=== PATIENT | female | born 1960 | race Caucasian/White ===

== ENCOUNTER 2017-07-05 02:10 | Emergency (ER) | payer OTHER ==
[~2017-07-05] VITALS: Ht 170.2 cm; Wt 160.0 kg
[~2017-07-05 02:10] MED LIST: ADVAI250I PO; ALBU8I INH; ALL5TAB5 PO; BUME1TAB PO; CITA20TA4 PO; METO25CR PO; MOBI15TA PO; PRAV40 PO; PRIL40CA PO; RISP2TAB2 PO; SERO300T PO; SYNT25TA PO; TIZA4 PO; TRAZ150T75 PO; TYLE500T PO; VENL150T14 PO
[2017-07-05 02:13] VITALS: BP 150/79; PULSE 76; RESP 20; TEMP 98; O2SAT 95
[2017-07-05] MEDS ORDERED: ADVA250A INH (03:22)
[2017-07-05] MEDS ORDERED: ALBU.5I NEB (03:22)
[2017-07-05] MEDS ORDERED: GABA300C5 PO (03:22)
[2017-07-05] MEDS ORDERED: METO1TAB9 PO (03:22)
[2017-07-05] MEDS ORDERED: AMLO2.5T PO (03:22)
[2017-07-05] MEDS ORDERED: PRAV40TA2 PO (03:22)
[2017-07-05] MEDS ORDERED: DULO1CAP3 PO (03:22)
[2017-07-05] MEDS ORDERED: COMPRESSOR NEBU1 MIS (03:22)
[2017-07-05] MEDS ORDERED: LOSA50TA PO (03:22)
[2017-07-05] MEDS ORDERED: OMEP40CA2 PO (03:22)
[2017-07-05] MEDS ORDERED: IBUP1TAB7 PO (03:22)
[2017-07-05] MEDS ORDERED: ACETAMINOPHEN 325 MG TAB PO ONE (03:45)
--- NOTE | 2017-07-05 04:34 | RADRPT ---
EXAM DATE/TIME: 07/05/2017 03:58 [facility] COMPARISON: No previous studies available for comparison. INDICATIONS : Trauma; fall. RADIATION DOSE: 35.15 CTDIvol (mGy) MEDICAL HISTORY : Hypertension. Asthma SURGICAL HISTORY : Gastric bypass. ENCOUNTER: Initial ACUITY: 1 day PAIN SCALE: 4/10 LOCATION: cranial TECHNIQUE: Multiple contiguous axial images were obtained of the head. Using automated exposure control and adj ustment of the mA and/or kV according to patient size, radiation dose was kept as low as reasonably a chievable to obtain optimal diagnostic quality images. DICOM format image data is available electro nically for review and comparison. FINDINGS: CEREBRUM: The ventricles are normal for age. No evidence of midline shift, mass lesion, hemorrhage or acute in farction. No extra-axial fluid collections are seen. POSTERIOR FOSSA: The cerebellum and brainstem are intact. The 4th ventricle is midline. The cerebellopontine angle i s unremarkable. EXTRACRANIAL: The visualized portion of the orbits is intact. SKULL: The calvaria is intact. No evidence of skull fracture. CONCLUSION: Negative trauma study. Carrillo Bailey MD on July 05, 2017 at 4:32 Board Certified Radiologist. This report was verified electronically.
--- NOTE | 2017-07-05 04:35 | RADRPT ---
EXAM DATE/TIME: 07/05/2017 03:58 [facility] COMPARISON: No previous studies available for comparison. INDICATIONS : Trauma; fall. RADIATION DOSE: 47.24 CTDIvol (mGy) MEDICAL HISTORY : Hypertension. Asthma SURGICAL HISTORY : Gastric bypass. ENCOUNTER: Initial ACUITY: 1 day PAIN SCORE: 4/10 LOCATION: facial TECHNIQUE: Volumetric scanning of the facial bones was performed. Using automated exposure control and adjustme nt of the mA and/or kV according to patient size, radiation dose was kept as low as reasonably achiev able to obtain optimal diagnostic quality images. DICOM format image data is available electronicall y for review and comparison. FINDINGS: ORBITS: The orbital and infraorbital osseous structures are intact. The retroconal structures have a normal configuration. No radiopaque foreign bodies are seen. NASAL BONE: The nasal bone and maxillary spine are intact ZYGOMATIC ARCHES: Symmetric without evidence of fracture. SINUSES: The maxillary, ethmoid and frontal sinuses are intact. No air-fluid levels seen. Mild mucosal thicke francisco is noted in the maxillary sinuses ethmoid air cells. NASAL CAVITY: The nasal septum is intact and midline. The lacrimal ducts are intact. SOFT TISSUES: No radiopaque foreign bodies seen. No soft-tissue swelling is seen. INTRACRANIAL: No intracranial air seen. CRIBIFORM PLATE: Grossly intact. CONCLUSION: 1. No acute fracture or malalignment. 2. Mild mucosal thickening. Carrillo Bailey MD on July 05, 2017 at 4:33 Board Certified Radiologist. This report was verified electronically.
--- NOTE | 2017-07-05 04:37 | RADRPT ---
EXAM DATE/TIME: 07/05/2017 03:58 [facility] COMPARISON: No previous studies available for comparison. INDICATIONS : Trauma; fall. RADIATION DOSE: 39.33 CTDIvol (mGy) ; Patient body habitus MEDICAL HISTORY : Hypertension. Asthma SURGICAL HISTORY : Gastric bypass. ENCOUNTER: Initial ACUITY: 1 day PAIN SCALE: 4/10 LOCATION: neck TECHNIQUE: Volumetric scanning of the cervical spine was performed. Multiplanar reconstructions in the sagittal, coronal and oblique axial planes were performed. Using automated exposure control and adjustment o f the mA and/or kV according to patient size, radiation dose was kept as low as reasonably achievable to obtain optimal diagnostic quality images. DICOM format image data is available electronically f or review and comparison. FINDINFINDINGS: The sagittal reconstructions demonstrate normal alignment and normal prevertebral soft tissues. The d ens is intact and there is a normal atlantoaxial relationship. The axial images demonstrate that the vertebral bodies and posterior elements are intact. The soft ti ssues are within normal limits. There is no evidence of acute fracture or malalignment. CONCLUSION: Negative trauma CT. Carrillo Bailey MD on July 05, 2017 at 4:34 Board Certified Radiologist. This report was verified electronically.
--- NOTE | 2017-07-05 05:15 | PD ---
HPI Chief Complaint: Fall Time Seen by Provider: 03:15 Travel History International Travel<30 days: No Contact w/Intl Traveler<30days: No Traveled to known affect area: No History of Present Illness HPI Patient is a 56 year old female who comes in complaining of pain to her nose after she fell. She says she fell asleep on the toilet and fell onto her face. She says she falls asleep all the time due to insomnia. She denies any chest pain or SOB. She says she is concerned she broke her nose. She did not take anything at home for pain. PFSH Past Medical History Asthma: Yes Bipolar Disorder: Yes Anxiety: Yes Depression: Yes Cardiovascular Problems: Yes (HTN) High Cholesterol: Yes COPD: Yes Diminished Hearing: No Psychiatric: Yes (BIPOLAR, PTSD) Respiratory: Yes (ASTHMA) Immunizations Current: Yes Thyroid Disease: Yes (HYPOTHYROID) ?: Not Menopausal: Yes : 2 Para: 1 : 1 Ectopic : No Ovarian Cysts: No Dilation and Curettage (D&C): Yes Tubal Ligation: No Past Surgical History Abdominal Surgery: Yes (GASTRIC BYPASS 1998) Section: No Cholecystectomy: Yes (1998) Hysterectomy: No Tonsillectomy: Yes () Social History Alcohol Use: Yes (ONCE A YEAR) Tobacco Use: Yes (2 PPD) Substance Use: No Allergies-Medications (Allergen,Severity, Reaction): Coded Allergies: penicillin G (Unverified Allergy, Unknown, as a child, 03/25/17) Reported Meds & Prescriptions Reported Meds & Active Scripts Active Reported Advair Diskus Inh (Fluticasone-Salmeterol Inh) 250-50 Mcg/Blist Aer 1 Puff INH BID Rinse mouth after use. Ibuprofen 800 Mg Tab 800 Mg PO QID Compressor Nebulizer 1 Mis Mis Ea .ROUTE DIRECTED Albuterol Neb (Albuterol Sulfate) 2.5 Mg/0.5 Ml Neb 2.5 Mg NEB Q4HR NEB PRN Note: The Albuterol Sulfate Inhalation Solution is concentrated and must be diluted. Read complete instructions carefully before using. Amlodipine (Amlodipine Besylate) 2.5 Mg Tab 2.5 Mg PO DAILY Pravastatin 40 Mg Tab 40 Mg PO DAILY Losartan (Losartan Potassium) 50 Mg Tab 50 Mg PO BID Duloxetine DR (Duloxetine HCl) 60 Mg Capdr 60 Mg PO DAILY Metoprolol Succinate ER 24 HR (Metoprolol Succinate) 50 Mg Tab 50 Mg PO DAILY Gabapentin 300 Mg Cap 300 Mg PO TID Omeprazole 40 Mg Cap 40 Mg PO DAILY Review of Systems General / Constitutional: No: Fever, Chills Eyes: No: Blurred Vision HENT: Positive: Headaches Cardiovascular: No: Chest Pain or Discomfort Respiratory: No: Shortness of Breath Gastrointestinal: No: Nausea, Vomiting Musculoskeletal: Positive: Pain Skin: No Rash, No Change in Pigmentation, No Lesions Neurologic: No: Weakness, Dizziness, Syncope Physical Exam Narrative GENERAL: Awake and alert, in no acute distress. SKIN: Focused skin assessment warm/dry. No wounds. HEAD: Atraumatic. Normocephalic. EYES: Pupils equal and round. No scleral icterus. No injection or drainage. ENT: Mucous membranes pink and moist. Swelling to the nose, no crepitus, no septal hematoma. Nose is tender to palpation. NECK: Trachea midline. No JVD. No cervical spine tenderness. CARDIOVASCULAR: Regular rate and rhythm. No murmur appreciated. RESPIRATORY: No accessory muscle use. Mild wheezing to both lungs. Breath sounds equal bilaterally. MUSCULOSKELETAL: No obvious deformities. No clubbing. No cyanosis. No edema. NEUROLOGICAL: Awake and alert. No obvious cranial nerve deficits. Motor grossly within normal limits. Normal speech. Data Data Last Documented VS Vital Signs Date Time Temp Pulse Resp B/P (MAP) Pulse Ox O2 Delivery O2 Flow Rate FiO2 07/05/17 02:13 98.0 76 20 150/79 (102) 95 Room Air Orders Orders Ct Brain W/O Iv Contrast(Rout) (07/05/17 ) Ct Cerv Spine W/O Contrast (07/05/17 ) Ct Facial Bones W/O Iv Cont (07/05/17 ) Acetaminophen (Tylenol) (07/05/17 03:45) MDM Medical Decision Making Medical Screen Exam Complete: Yes Emergency Medical Condition: Yes Medical Record Reviewed: Yes Differential Diagnosis nasal bone fracture vs head injury vs cervical spine injury Narrative Course Patient is a 56 year old female who comes in complaining of pain to her nose after a fall. Exam shows swelling and tenderness to her nose. CT head, facial bones and C-spine performed. These show no acute abnormalities. Given Tylenol for pain. Advised to follow up with her doctors. Advised to return to the ED as needed for any worsening symptoms. Diagnosis Primary Impression: Fall Qualified Codes: W19.XXXA - Unspecified fall, initial encounter Patient Instructions: Fall Prevention (ED), General Instructions Additional Instructions: Follow up with your doctors. Take Tylenol as needed for pain. Return to the ED as needed for any worsening symptoms. Disposition: 01 DISCHARGE HOME Condition: Stable Neida Long MD Jul 05, 2017 05:15
== END 2017-07-05 05:43 | disposition home or self-care (01) ==
LOC: NEPC 02:10
DX: S09.90XA Unspecified injury of head, initial encounter (principal); W18.11XA Fall from or off toilet without subsequent striking against object, initial encounter
CPT/HCPCS: 70450; 70486; 72125; 99285